=== PATIENT | male | born 1985 | race Asian ===

== ENCOUNTER 2021-10-29 09:15 | Outpatient (CLI) | payer MEDICAID | END 2021-10-29 09:16 | disposition home or self-care (01) | LOC: LAB.N 09:15 | PROVIDERS: ATTEND Physician Assistant | DX: Z01.84 Encounter for antibody response examination (principal) | CPT/HCPCS: 86317 ==

== ENCOUNTER 2023-09-11 12:25 | Outpatient (CLI) | payer MEDICAID ==
[2023-09-13 15:09] LABS: MUMPS ANTIBODIES IGG 83.8 AU/mL (Immune >10.9)
== END 2023-09-11 12:26 | disposition home or self-care (01) ==
LOC: LAB.N 12:25
PROVIDERS: ATTEND Physician Assistant
DX: Z01.84 Encounter for antibody response examination (principal); Z13.9 Encounter for screening, unspecified
CPT/HCPCS: 36415; 81599; 86735; 86762; 86765